=== PATIENT | male | born 1980 | race Caucasian/White ===

== ENCOUNTER 2016-10-09 08:35 | Emergency (ER) | payer MEDICAID ==
[~2016-10-09] VITALS: Ht 167.6 cm; Wt 84.0 kg
[2016-10-09 08:40] VITALS: Ht 167.6 cm; Wt 84.0 kg
[2016-10-09] MEDS ORDERED: IBUPROFEN 600 MG TAB PO ONE (09:30)
--- NOTE | 2016-10-09 09:33 | ERD ---
ER Documentation Chief Complaint Date/Time DATE: 10/09/16 TIME: 09:30 Chief Complaint Complains of left hand and finger swelling x 2 days HPI 36 year old male who is right hand dominant comes in with left 3rd and 4th digit swelling from trauma yesterday. Patient states he dropped a weight onto these digits. He has pain at the fingertips, with ecchymosis. He denies paresthesias, weakness. ROS All systems reviewed and are negative except as per history of present illness. Allergies Allergies: Coded Allergies: No Known Allergy (Unverified , 10/09/16) PMhx/Soc Medical and Surgical Hx: pt denies Medical Hx Hx Alcohol Use: No Hx Substance Use: No Hx Tobacco Use: No Physical Exam Vitals Vital Signs Date Time Temp Pulse Resp B/P Pulse Ox O2 Delivery O2 Flow Rate FiO2 10/09/16 08:40 97.9 78 20 133/79 97 Physical Exam General: Well-developed, well-nourished. The patient appears in no acute distress. HEENT: Head is normocephalic, atraumatic. No scleral icterus. Neck: Supple. Nontender. Lungs: Clear to auscultation. Normal air movement. Heart: Regular rate and rhythm. S1 and S2 are normal. No murmurs, gallops, or rubs. Abdomen: Nondistended. Extremities: Swelling and bruising to both left third and fourth digits at the fingertips, he has full range of motion at the DIP, PIP and MCP joints, capillary refill less than 2 seconds. Sensation distally intact. Neurologic: Alert and oriented 3. No focal deficits. Normal speech and gait. Skin: Normal turgor. No rash or lesions. Results 24 hrs Current Medications Medications (Trade) Dose Ordered Sig/Harry Route PRN Reason Start Time Stop Time Status Last Admin Dose Admin Ibuprofen (Motrin) 600 mg ONCE ONCE PO 10/09/16 09:30 10/09/16 09:31 DC 10/09/16 09:33 DIAGNOSTIC IMAGING REPORT Patient: CORTEZ DUNHAM : 1980 Age: 36 Sex: M MR #: [id number] DOS: 10/09/16921 Ordering MD: BROOKLYN MERA PA-C Location: [facility] Room/Bed: PROCEDURE: Left hand series CLINICAL INDICATION: Left hand pain TECHNIQUE: Three views of the left hand were obtained. COMPARISON: No prior studies are available for comparison. FINDINGS: There is normal mineralization and alignment of the bones of the left hand. There are mildly displaced fractures of the distal lupillo of the third and fourth distal phalanges.. Joint spaces are well maintained. There is no evidence of osteophyte formation or erosions. The soft tissues are within normal limits. IMPRESSION: 1. Third and fourth distal phalanx fractures.. RPTAT: KK .Estuardo Dean MD, MD Date Time Electronically viewed and signed by .Estuardo Dean MD, MD on 2016 10:06 .B/ CC: BROOKLYN MERA PA-C Procedures/MDM ED course: He was given ibuprofen for pain here. Patient's left third and fourth digits were splinted using ly tape splint and metal finger splint immobilization. Splint Assessment: Neurovascularly intact post splint placement with good fit. Medical decision makin-year-old male comes in with trauma to his left third and fourth digits, Comes in with acute closed fractures of the distal phalanges of her left third and fourth digits. There is no evidence of any tendon rupture, tenosynovitis, cellulitis, open fracture. He is neurovascularly intact, patient has been informed of his x-ray findings and was advised to follow-up with a hand surgeon in the next 1-2 days. Departure Diagnosis: Primary Impression: Fracture, finger Condition: Good BROOKLYN MERA PA-C Oct 09, 2016 09:33
--- NOTE | 2016-10-09 10:07 | RADRPT ---
PROCEDURE: Left hand series CLINICAL INDICATION: Left hand pain TECHNIQUE: Three views of the left hand were obtained. COMPARISON: No prior studies are available for comparison. FINDINGS: There is normal mineralization and alignment of the bones of the left hand. There are mildly displa barbara fractures of the distal lupillo of the third and fourth distal phalanges.. Joint spaces are well maintained. There is no evidence of osteophyte formation or erosions. The soft tissues are within normal limits. IMPRESSION: 1. Third and fourth distal phalanx fractures.. RPTAT: KK .Estuardo Dean MD, MD Date Time Electronically viewed and signed by .Estuardo Dean MD, on 10/09/2016 10:06 .B/
== END 2016-10-09 10:43 | disposition home or self-care (01) ==
LOC: FTE 08:35
DX: S62.633A Displaced fracture of distal phalanx of left middle finger, initial encounter for closed fracture (principal); S62.635A Displaced fracture of distal phalanx of left ring finger, initial encounter for closed fracture; W20.8XXA Other cause of strike by thrown, projected or falling object, initial encounter; Y92.9 Unspecified place or not applicable
CPT/HCPCS: 29130; 73130; Z7502; Z7610

== ENCOUNTER 2017-06-17 09:40 | Emergency (ER) | END 2017-06-17 11:39 | disposition home or self-care (01) ==